=== PATIENT | female | born 1960 | race Caucasian/White ===

== ENCOUNTER → 2018-06-05 | Outpatient (CLI) | payer OTHER ==
[2015-08-04 13:19] VITALS: BP 167/86
[~2018-06-05] MED LIST: ASPI-482 PO; ATOR10TA60 PO; CITA40TA5 PO; CYCL10TA2 PO; GLIP5TAB10 PO; HYDR-2761 PO; INSU100I13 SQ; LISI10TA2 PO; TRAZ-118 PO
--- NOTE | 2018-06-05 13:19 | RAD ---
DATE: June 05, 2018 EXAM: DIGITAL SCREEN BILAT W/CAD HISTORY: Screening study. COMPARISON: None. Baseline study. 2-D digital mammography of both breasts were performed in the CC and MLO projections. This study was interpreted with the benefit of Computerized Aided Detection (CAD). FINDINGS: Breast Density: FATTY The breast parenchyma is primarily fatty replaced. Breast parenchyma level density A.. There are no suspicious microcalcifications or evidence of architectural distortion. Small bilateral breast nodules are seen. However, there is a more prominent nodule within the posterior left breast with angular margins located just lateral to the midline in the CC view and located 10-11 cm from the nipple. This nodule measures 8 mm in size. IMPRESSION: Left breast nodule at the 3 clock position. Recommend sonography for further evaluation. BI-RADS CATEGORY: 0 INCOMPLETE: NEEDS ADDITIONAL IMAGING EVALUATION AND/OR PRIOR MAMMOGRAMS FOR COMPARISON. RECOMMENDED FOLLOW-UP: ADD ADDITIONAL IMAGING PQRS compliance statement: Patient information was entered into a reminder system with a target due date now for the next imaging study. Mammography is a sensitive method for finding small breast cancers, but it does not detect them all and is not a substitute for careful clinical examination. A negative mammogram does not negate a clinically suspicious finding and should not result in delay in biopsying a clinically suspicious abnormality. "Our facility is accredited by the [employer] Mammography [employer]." The patient's breast density may affect the ability of mammography to detect breast cancer. There are 4 categories of breast density, A, B, C and D. Breast density A means that most of the breast tissue is replaced with adipose tissue and therefore is not dense. Breast density B means that the breast tissue is mildly dense and scattered. Breast density C means that the breast tissue is heterogeneously dense. Breast density D means that the breast tissue is very dense. Breast densities especially C and D may decrease the sensitivity of mammography to detect breast cancer. Therefore, the patient may benefit from 3-D breast mammography (3D breast tomography) as a part of their screening mammogram. Insurance may or may not pay for this additional imaging. The patient's breast density based on today's mammogram is category A.
== END | disposition home or self-care (01) ==
LOC: MAMMO 12:24
PROVIDERS: ATTEND Family Medicine
DX: Z12.31 Encounter for screening mammogram for malignant neoplasm of breast (principal); N63.21 Unspecified lump in the left breast, upper outer quadrant
CPT/HCPCS: 77067

== ENCOUNTER → 2018-06-07 | Outpatient (CLI) | payer OTHER ==
[2015-08-04 13:19] VITALS: BP 167/86
--- NOTE | 2018-06-07 15:55 | RAD ---
DATE: 06/07/2018 EXAM: DIGITAL DIAGNOSTIC LT, BREAST LEFT HISTORY: Abnormality on screening mammogram COMPARISON: Screen mammographic examination 06/05/2018 This study was interpreted with the benefit of Computerized Aided Detection (CAD). Breast Density: SCATTERED The breast parenchyma shows scattered fibroglandular densities. Breast parenchyma level B. FINDINGS: Ultrasound examination of the left breast was performed in the 3:00 region 10 cm from the nipple and the axillary region. Possibility of an ovoid hypoechoic mass measuring up to 6.1 cm x 0.25 similar tall is questioned. No flow identified within it. Spot compression imaging of the left breast in the CC and MLO projections demonstrate persistence of this lesion. This mass is not well delineated on the mediolateral views. It is well-circumscribed. IMPRESSION: Indeterminate small mass. No aggressive features. Six-month follow-up mammographic examination and possibly ultrasound recommended to assess stability. BI-RADS CATEGORY: 3 PROBABLY BENIGN FINDING(S)-SHORT INTERVAL FOLLOW-UP SUGGESTED RECOMMENDED FOLLOW-UP: 6M 6 MONTH FOLLOW-UP PQRS compliance statement: Patient information was entered into a reminder system with a target due date in 6 months for the next mammogram. Mammography is a sensitive method for finding small breast cancers, but it does not detect them all and is not a substitute for careful clinical examination. A negative mammogram does not negate a clinically suspicious finding and should not result in delay in biopsying a clinically suspicious abnormality. "Our facility is accredited by the [employer] Mammography [employer]."
== END | disposition home or self-care (01) ==
LOC: US 14:29
PROVIDERS: ATTEND Family Medicine
DX: R92.8 Other abnormal and inconclusive findings on diagnostic imaging of breast (principal)
CPT/HCPCS: 76641; 77065

== ENCOUNTER → 2019-01-03 | Outpatient (CLI) | payer OTHER ==
[2015-08-04 13:19] VITALS: BP 167/86
--- NOTE | 2019-01-03 14:06 | RAD ---
DATE: 01/03/2019. EXAM: DIGITAL DIAGNOSTIC LT, BREAST LEFT. HISTORY: Six-month follow-up left breast nodule. COMPARISON: 06/07/2018. This study was interpreted with the benefit of Computerized Aided Detection (CAD). FINDINGS: Breast Density: SCATTERED The breast parenchyma shows scattered fibroglandular densities. Breast parenchyma level B.. The nodule of concern slightly laterally at the 3:00 position in the posterior 3rd is another circumscribed or obscured. There are no suspicious features. On today's sonography, there is no correlate for the mammographic finding. Only normal parenchyma is seen. There are no suspicious masses, microcalcifications or architectural distortion. BI-RADS CATEGORY: 2 BENIGN FINDING(S). RECOMMENDED FOLLOW-UP: 6M 6 MONTH FOLLOW-UP. 1. Recommend bilateral mammography in 6 months for the patient's yearly screening. PQRS compliance statement: Patient information was entered into a reminder system with a target due date 07/04/2019 for the next mammogram. Mammography is a sensitive method for finding small breast cancers, but it does not detect them all and is not a substitute for careful clinical examination. A negative mammogram does not negate a clinically suspicious finding and should not result in delay in biopsying a clinically suspicious abnormality. "Our facility is accredited by the [employer] Mammography [employer]."
== END | disposition home or self-care (01) ==
LOC: MAMMO 13:00
PROVIDERS: ATTEND Family Medicine
DX: N63.23 Unspecified lump in the left breast, lower outer quadrant (principal)
CPT/HCPCS: 76641; 77065

== ENCOUNTER → 2019-09-05 | Outpatient (CLI) | payer OTHER ==
[2015-08-04 13:19] VITALS: BP 167/86
--- NOTE | 2019-09-05 11:55 | RAD ---
MR#: [id number] Date of Study: 09/05/2019 Ordering Physician: YURIDIA CATALAN, Referring Physician: ROSARIO HOOVER Tech: RT Akhil MastersR) (N) APPROVED REPORT Test Type: Exercise Stress Nurse/Tech: Zaynab Irving RN Test Indications: Exertional Dyspnea Cardiac History: Hypertension, Diabetes Medications: See Electronic Medical Record Medical History: See Electronic Medical Record Resting ECG: SR Resting Heart Rate: 72 bpm Resting Blood Pressure: 145/72mmHg Pretest Chest Pain: No chest pain Nurse/Tech Notes S1 S2, Lungs CTA Consent: The procedure was explained to the patient in lay terms. Informed consent was witnessed. Elroy eout was entered into [employer]. History and Stress Test performed by RT Flory (Yvrose) (N) Stress Symptoms Dyspnea POST EXERCISE Reason for Termination: Reached target heart rate Target HR: 136 Max HR: 226 bpm 166% of Maximum Predicted HR: 136 bpm Exercise duration: 2:45 min:sec, 1 Stage Exercise capacity: 7.0METs Max Blood Pressure: 183/68mmHg Blood Pressure response to exercise: Normal blood pressure response during stress. Heart Rate response to exercise: WNL Chest Pain: No. Arrhythmia: No. ST Change: No. INTERPRETATION Stress EKG Conclusion: No evidence of stress induced EKG changes. Imaging Protocol IMAGE PROTOCOL: Stress Tc-99m/rest Tc-99m 2 days Rest: Stress: Viability: Radiopharm.Tc99m Sestamibi Dose32.5mCi Img Date 09/05/2019 Inj-Img [id number]. Stress Admin Site: IV - Left AntecubitalAdministrator: RT Sonam (Yvrose)(N) STRESS DATA End Diast. Vol.71.0mlAv. Heart Rate82.0bpm End Syst. Vol.20.0mlCO Index BSA0.0L/min Myocardial Brog903.0gEject. Plqmqjwm04.0% Stress Rates Pk. Fill Rate3.72EDV/secLVtime Pk. Fill 205.27msec Pk. Empty Rate4.33ESV/secLVtime Pk. Awlej452.08msec 1/3 Pk. Fill1.22EDV/sec Stress Scores Regional WT0.00Summed WT0.00 Regional WM0.00Summed WM1.00 LV Perfusion Normal perfusion at stress. Wall Motion Normal wall motion. Ef > 60% LV Perf. Quant 17 Seg. SSS0.00 Stress Defect Extent (% LAD)0.00Rest Defect Extent (% LAD)Rev. Defect Extent (% LAD) Stress Defect Extent (% LCX) 0.00Rest Defect Extent (% LCX)Rev. Defect Extent (% LCX) Stress Defect Extent (% RCA)0.00Rest Defect Extent (% RCA)Rev. Defect Extent (% RCA) Stress Defect Extent (% SPENCER)0.00Rest Defect Extent (% SPENCER)Rev. Defect Extent (% SPENCER) Other Information Quality:Average Risk Assessment: Low Risk Conclusion 1. Below average exercise capacity but no acute ischemic EKG changes. 2. Normal perfusion at stress. Rest images not obtained. 3. Normal EF at > 65% 4. Low risk study Signed by : Yuridia Catalan, Electronically Approved : 09/05/2019 11:54:42
== END | disposition home or self-care (01) ==
LOC: NM 07:41
PROVIDERS: ATTEND Internal Medicine Cardiovascular Disease
DX: R06.09 Other forms of dyspnea (principal); I10 Essential (primary) hypertension; E11.9 Type 2 diabetes mellitus without complications
CPT/HCPCS: 78452; 93017; A9500

== ENCOUNTER → 2020-06-03 | Outpatient (CLI) | payer OTHER ==
[2015-08-04 13:19] VITALS: BP 167/86
[~2020-06-03] MED LIST changes: +LISI10TA16 PO; -LISI10TA2 PO; +ZOLPIDEM 5 MG TABLET. PO ONE
--- NOTE | 2020-06-04 10:45 | SLEEP ---
DATE OF STUDY: 06/03/2020 SLEEP STUDY ATTENDING PHYSICIAN: Dr. Mello The patient is a 60-year-old who weighs 230 pounds with a BMI of 39. The patient's Erhard score was 11. The patient had sleep study about 10 years ago and was positive for DEDE. Another split night study was requested. During the night study, the patient spent 439 minutes in bed and slept for 249 minutes with a low sleep efficiency of 57%. Sleep latency was 119 minutes which is prolonged with a REM latency of 398 minutes which was prolonged as well. Sleep architecture showed increased stage 1 and stage 2 sleep, normal slow wave and reduced REM sleep. During the initial diagnostic portion of the study, the patient slept for 126 minutes. During that time, the patient had 3 obstructive apneas, no mixed apneas, 6 central apneas and 33 hypopneas. The patient's AHI was 20 per hour with a supine AHI of 34 per hour. REM sleep was not seen during the diagnostic portion. EKG monitoring revealed an average heart rate of 85 beats per minute. No sustained arrhythmias observed. PLMs were seen at index of 25 per hour, but only 1 per hour caused EEG arousals. Nocturnal oximetry study revealed a mean oxygen saturation of 97% with the lowest of 88%. Only 6% of time oxygen saturation remained between 80% and 89%. The patient met the criteria for CPAP initiation. It was started at 5 cm water and titrated up to 15 cm water. At the final pressure, the patient slept for 54 minutes. The patient had supine as well as REM sleep. The patient's AHI was reduced to 1 per hour and oxygen saturations remained above 93%. The patient used medium size nasal mask. IMPRESSION: 1. Moderate obstructive sleep apnea with worsening during supine sleep. Total AHI 20 per hour with a supine AHI of 34 per hour. REM sleep was not seen during the diagnostic portion. 2. Mild nocturnal hypoxia, resolved with CPAP. 3. Wnwi-oy-ynwqzkyf periodic limb movements without any significant EEG arousals. This does not need to be treated unless the patient has symptoms of restless legs during the day. RECOMMENDATIONS: 1. CPAP at 15 cm water completely eliminated the patient's sleep apnea and should be used on a nightly basis. 2. Follow up in 4-6 weeks to assess compliance with CPAP and to document clinical improvement. 3. Weight loss is advised. 4. Avoid [employer] depressants. 5. Cautioned regarding driving until symptoms of sleep apnea resolve with the use of CPAP. 6. Avoid supine sleep. DOUGLAS MASON MD DR: ARPITA/kailash JOB#: [id number] / [id number]
== END ==
LOC: SLPLAB 19:00
PROVIDERS: ATTEND Family Medicine
DX: G47.33 Obstructive sleep apnea (adult) (pediatric) (principal); R09.02 Hypoxemia
CPT/HCPCS: 95810

== ENCOUNTER → 2020-09-24 | Outpatient (CLI) | payer OTHER ==
[2015-08-04 13:19] VITALS: BP 167/86
[~2020-09-24] MED LIST changes: -ZOLPIDEM 5 MG TABLET. PO ONE
--- NOTE | 2020-09-24 13:52 | RAD ---
PA and lateral chest radiographs 09/16/2020 CLINICAL HISTORY: Shortness of breath. PA and lateral digital radiographs of chest were obtained. The cardiac silhouette is borderline enlar ged. The thoracic aorta is mildly tortuous. No acute pulmonary infiltrate is seen. No pleural effusio n or pneumothorax is noted. Degenerative changes are seen involving the thoracic spine. IMPRESSION: No acute abnormality is seen. Electronically signed by: Santino Fitzpatrick MD (09/24/2020 1:50 PM) [facility]
== END ==
LOC: LAB 09:27
PROVIDERS: ATTEND Internal Medicine Critical Care Medicine
DX: I51.7 Cardiomegaly (principal); M47.814 Spondylosis without myelopathy or radiculopathy, thoracic region
CPT/HCPCS: 71046